=== PATIENT | male | born 1990 | race Hispanic/Latino ===

== ENCOUNTER 2024-12-04 21:58 | Emergency (ER) | payer OTHER ==
[~2024-12-04] VITALS: Ht 170.2 cm; Wt 113.4 kg
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
[2024-12-04] MEDS ORDERED: ACET-66 PO (23:39)
[2024-12-04] MEDS ORDERED: IBUP-2076 PO (23:39)
--- NOTE | 2024-12-04 23:50 | NUR ---
RIGHT ORTHO BOOT PLACED ON PATIENT.
[2024-12-05 00:12] VITALS: BP 126/79; PULSE 78; RESP 18; TEMP 98.3; O2SAT 98
== END 2024-12-05 00:16 | disposition home or self-care (01) ==
LOC: EDH 21:58
DX: S92.511A Displaced fracture of proximal phalanx of right lesser toe(s), initial encounter for closed fracture (principal); F41.9 Anxiety disorder, unspecified; F32.A Depression, unspecified; V89.2XXA Person injured in unspecified motor-vehicle accident, traffic, initial encounter; Y93.89 Activity, other specified; Y92.89 Other specified places as the place of occurrence of the external cause; Y99.8 Other external cause status
CPT/HCPCS: 73610; 73630; 99284